=== PATIENT | female | born 1970 | race Caucasian/White ===

== ENCOUNTER → 2020-04-19 | Outpatient (CLI) | payer BC, OTHER ==
[~2020-04-19] MED LIST: AMOXICILLIN500 MG PO; ZOFRAN ODT 4 MG4 MG SL
== END ==
LOC: US 14:00
DX: S70.11XA Contusion of right thigh, initial encounter (principal); M79.604 Pain in right leg; R22.41 Localized swelling, mass and lump, right lower limb
CPT/HCPCS: 76881

== ENCOUNTER 2020-08-20 00:25 | Emergency (ER) | payer BC, OTHER | END 2020-08-20 02:47 | disposition left against medical advice (07) | LOC: ER1 00:25 | DX: Z53.21 Procedure and treatment not carried out due to patient leaving prior to being seen by health care provider (principal) ==